=== PATIENT | male | born 1995 | race Two or more races ===

== ENCOUNTER 2025-02-24 15:39 | Emergency (ER) | payer MEDICAID, OTHER ==
[~2025-02-24] VITALS: Ht 175.3 cm; Wt 85.0 kg
[2025-02-24 16:03] VITALS: PULSE 92; RESP 22; O2SAT 94
[2025-02-24] MEDS: SODIUM CHLORIDE 0.9% 1,000 ML IV ONE ×2 (16:32→22:20)
[2025-02-24 17:06] LABS: Hematocrit 38.9 % (41.0-53.0); Hemoglobin 13.6 g/dL (13.5-17.5); Mean Corpuscular Hemoglobin 31.8 pg (28.0-32.0); Mean Corpuscular Volume 91.0 fL (80.0-100.0); Nucleated Red Blood Cells % 0.2 %
[2025-02-24 17:14] LABS: Chloride 102 mmol/L (98-107); Sodium 141 mmol/L (136-145)
[2025-02-24 17:15] LABS: Anion Gap 11 (5-15); Carbon Dioxide 28 mmol/L (20-31)
[2025-02-24 17:16] LABS: Calcium 8.5 mg/dL (8.7-10.4); Potassium 3.5 mmol/L (3.5-5.1)
[2025-02-24 17:20] LABS: BUN/Creatinine Ratio 6.7 (10.0-20.0); Glucose 104 mg/dL (74-106)
[2025-02-24 17:56] LABS: Blood Urea Nitrogen 8 mg/dL (9-23)
[2025-02-24 19:30] VITALS: PULSE 98; RESP 22; TEMP 97.7; O2SAT 94
--- NOTE | 2025-02-24 21:35 | ED.PDOC ---
Psychiatric HPI Comments This is a 29 year-old male, BIBA for ETOH intoxication. Patient was picked up from the corner of [place] [address] and [address] Patient was given 4MG of Zofran en route. Patient is a poor historian at this time. Chief Complaint: ETOH Time Seen by MD: 21:45 Reviewed Notes: Medications, Allergies Information Source: Emergency Med Personnel Mode of Arrival: EMS Timing: Hours Duration: Since onset Presents with: Alcohol Intoxication Quality: None Past Medical History PAST MEDICAL HISTORY: Unknown Surgical History: Unobtainable Family History Family History: Unobtainable Social History Smoker: Unobtainable Alcohol: Unobtainable Drugs: Unobtainable Lives In: Home Constitutional: denies: chills, diaphoresis, fatigue, fever, malaise, sweats, weakness, others EENTM: denies: blurred vision, double vision, ear bleeding, ear discharge, ear drainage, ear pain, ear ringing, eye pain, eye redness, hearing loss, mouth pain , mouth swelling, nasal discharge, nose bleeding, nose congestion, nose pain, photophobia, tearing, throat pain, throat swelling, voice changes, others Respiratory: denies: cough, hemoptysis, orthopnea, SOB at rest, shortness of breath, SOB with excertion, stridor, wheezing, others Cardiovascular: denies: chest pain, dizzy spells, diaphoresis, Dyspnea on exertion, edema, irregular heart beat, left arm pain, lightheadedness, palpitations, PND, syncope, others Gastrointestinal: denies: abdomen distended, abdominal pain, blood streaked bowels, constipated, diarrhea, dysphagia, difficulty swallowing, hematemesis, melena, nausea, poor appetite, poor fluid intake, rectal bleeding, rectal pain, vomiting, others Genitourinary: denies: burning, dysuria, flank pain, frequency, hematuria, incontinence, penile discharge, penile sore, pain, testicle pain, testicle swelling, urgency, others Neurological: denies: dizziness, fainting, headache, left sided numbness, left sided weakness, numbness, paresthesia, pre-existing deficit, right sided numbness, right sided weakness, seizure, speech problems, tingling, tremors, weakness, others Musculoskeletal: denies: back pain, gout, joint pain, joint swelling, muscle pain, muscle stiffness, neck pain, others Integumetry: denies: bruises, change in color, change in hair/nails, dryness, laceration, lesions, lumps, rash, wounds, others Allergic/Immunocompromised: denies: Difficulty Healing, Frequent Infections, Hives, Itching, others Hematologic/Lymphatic: denies: anemia, blood clots, easy bleeding, easy bruising, swollen glands, others Endocrine: denies: excessive hunger, excessive sweating, excessive thirst, excessive urination, flushing, intolerance to cold, intolerance to heat, unexplained weight gain, unexplained weight loss, others Psychiatric: denies: anxiety, bipolar disorder, depression, hopeless, panic disorder, schizophrenia, sleepless, suicidal, others Unable to Obtain due to: Altered Mental Status All Other Systems: Deferred Physical Exam General Appearance: Normal HEENT: Normal ENT Inspection Neck: Normal, Normal Inspection Respiratory: No Respiratory Distress Cardiovascular: Regular Rate/Rhythm Breast Exam: Deferred Gastrointestinal: Non Tender, Soft Genitalia: Deferred Pelvic: Deferred Rectal: Deferred Extremities: No calf tenderness, Normal capillary refill, Normal inspection, Normal range of motion, Non-tender, No pedal edema Musculoskeletal : Apperance: Normal Neurologic: Disoriented Cerebellar Function: NOT DONE Reflexes: NOT DONE Skin: Dry, Normal Color, Warm Lymphatic: NOT DONE Was a procedure done? Was a procedure done?: No Psych Differential Dx Psych. Differential Dx: Anxiety, Depression OD Differential Dx: Alcohol Abuse, Drug Overdose, Substance Abuse X-Ray, Labs, Meds, VS Vital Signs Date Time Temp Pulse Resp B/P (MAP) Pulse Ox O2 Delivery O2 Flow Rate FiO2 02/24/25 20:00 82 02/24/25 19:30 97.7 95 16 105/54 (71) 100 97.7 02/24/25 19:30 98 22 94 Room Air* 0 21 02/24/25 18:00 91 16 106/74 (85) 100 02/24/25 17:00 88 19 101/65 (77) 95 02/24/25 16:45 88 16 112/73 (86) 92 02/24/25 16:29 88 02/24/25 16:03 92 22 94 Room Air* 0 21 02/24/25 16:03 98.7 92 22 95/57 (70) 94 98.7 02/24/25 15:39 98.1 103 20 113/76 95 98.1 Lab Test 02/24/25 16:50 Range/Units White Blood Count 9.9 4.4-10.8 10^3/uL Red Blood Count 4.27 L 4.5-5.90 10^6/uL Hemoglobin 13.6 13.5-17.5 g/dL Hematocrit 38.9 L 41.0-53.0 % Mean Corpuscular Volume 91.0 80.0-100.0 fL Mean Corpuscular Hemoglobin 31.8 28.0-32.0 pg Mean Corpuscular Hemoglobin Concent 34.9 32.0-36.0 g/dL Red Cell Distribution Width 13.2 11.8-14.3 % Platelet Count 297 140-450 10^3/uL Mean Platelet Volume 7.3 6.9-10.8 fL Neutrophils (%) (Auto) 76.7 37.0-80.0 % Lymphocytes (%) (Auto) 16.8 10.0-50.0 % Monocytes (%) (Auto) 5.7 0.0-12.0 % Eosinophils (%) (Auto) 0.2 0.0-7.0 % Basophils (%) (Auto) 0.6 0.0-2.0 % Neutrophils # (Auto) 7.6 1.6-8.6 10 ^3/uL Lymphocytes # (Auto) 1.7 0.4-5.4 10 ^3/uL Monocytes # (Auto) 0.6 0-1.3 10 ^3/uL Eosinophils # (Auto) 0 0-0.8 10 ^3/uL Basophils # (Auto) 0.1 0-0.2 10 ^3/uL Nucleated Red Blood Cells 0.2 % Sodium Level 141 136-145 mmol/L Potassium Level 3.5 3.5-5.1 mmol/L Chloride Level 102 98-107 mmol/L Carbon Dioxide Level 28 20-31 mmol/L Anion Gap 11 5-15 Blood Urea Nitrogen 8 L 9-23 mg/dL Creatinine 1.19 0.700-1.30 mg/dL Glomerular Filtration Rate Calc 86 >90 mL/min BUN/Creatinine Ratio 6.7 L 10.0-20.0 Serum Glucose 104 74-106 mg/dL Calcium Level 8.5 L 8.7-10.4 mg/dL Plasma/Serum Blood Alcohol 270.8 H <10 mg/dL Current Medications Medications (Trade) Dose Ordered Sig/Caryn Route Start Time Stop Time Status Last Admin Sodium Chloride 1,000 ml @ 1,000 mls/hr Q1H ONCE IV 02/24/25 16:15 02/24/25 17:14 DC 02/24/25 16:32 Sodium Chloride 1,000 ml @ 1,000 mls/hr Q1H ONCE IV 02/24/25 21:45 02/24/25 22:44 DC 02/24/25 22:20 Time of 1ST Reevaluation: 22:19 Reevaluation 1ST: Unchanged Patient Education/Counseling: Diagnosis, Treatment Family Education/Counseling: No Family Present Departure 1 Departure Time of Disposition: 23:41 Impression: Primary Impression: Acute alcohol intoxication Additional Impression: Alcohol abuse Disposition: 01 HOME / SELF CARE / HOMELESS Condition: Stable Additional Instructions: Severely limit alcohol consumption. Discharged With: Self Critical Care Note Critical Care Time?: No Stability Stability form required: No Heart Score Heart Score: Heart Score Response (Comments) Value History N/A 0 EKG N/A 0 Age N/A 0 Risk Factors N/A 0 Troponin N/A 0 Total 0 I personally scribed for ER ([email or web address]) on 02/24/25 at 21:35. Electronically submitted by Susie Kelley ([employer]). I personally scribed for ER ([email or web address]) on 02/24/25 at 23:43. Electronically submitted by Susie Kelley ([employer]). I personally scribed for ER ([email or web address]) on 02/24/25 at 23:44. Electronically submitted by Susie Kelley ([employer]). ER Feb 24, 2025 21:35 CHIRAG FISCHER Feb 25, 2025 00:47
[2025-02-25 01:00] VITALS: BP 127/81; PULSE 89; RESP 16; O2SAT 100
== END 2025-02-25 01:22 | disposition home or self-care (01) ==
LOC: EDBD 15:39 → ER 15:39
DX: F10.129 Alcohol abuse with intoxication, unspecified (principal); F17.200 Nicotine dependence, unspecified, uncomplicated; Y90.9 Presence of alcohol in blood, level not specified
CPT/HCPCS: 36415; 80048; 80320; 85025; 96360; 96361; 99285; J7030